=== PATIENT | male | born 1980 | race Caucasian/White ===

== ENCOUNTER 2023-09-08 17:30 | Inpatient (IN) | payer OTHER ==
[2023-09-08 17:57] VITALS: BMI 27.1
[2023-09-08] MEDS ORDERED: IBUPROFEN 400 MG TABLET (FP) PO PRN (18:11)
[2023-09-08] MEDS ORDERED: LOPERAMIDE HCL 2 MG CAPSULE PO PRN (18:11)
[2023-09-08] MEDS ORDERED: POLYETHYLENE GLYCOL (HEALTHYLAX) 3350 17 GM PACKET PO PRN (18:11)
[2023-09-08] MEDS ORDERED: guaiFENesin 600 MG TABLET.ER (FP) PO PRN (18:11)
[2023-09-08] MEDS ORDERED: MAG HYDROX/AL HYDROX/SIMETH 30 ML UNIT-DOSE CUP PO PRN (18:11)
[2023-09-08] MEDS ORDERED: BENZOCAINE/MENTHOL (CHLORASEPTIC ) LOZENGE MM PRN (18:11)
[2023-09-08] MEDS ORDERED: BENZONATATE 200 MG CAPSULE PO PRN (18:11)
[2023-09-08] MEDS ORDERED: ACETAMINOPHEN 325 MG TABLET (FP) PO PRN (18:11)
[2023-09-08] MEDS ORDERED: hydrOXYzine PAMOATE 25 MG CAPSULE (FP) PO PRN (18:11)
[2023-09-08] MEDS ORDERED: DOCUSATE SODIUM 100 MG CAPSULE (FP) PO PRN (18:11)
[2023-09-08] MEDS ORDERED: MAGNESIUM HYDROX 2400MG/30ML ORAL SUSPENSION 30 ML CUP PO PRN (18:11)
[2023-09-08] MEDS: THIAMINE 100 MG TABLET PO SCH (21:12)
[2023-09-08] MEDS: MELATONIN 5 MG TABLETS PO SCH (21:12)
[2023-09-08] MEDS ORDERED: TUBERCULIN PPD 5 TU/0.1ML VIAL ID ONE ×3 (22:32→23:02)
[2023-09-08] MEDS: TUBERCULIN PPD 5 TU/0.1ML SYRINGE (IN PATIENT USE ONLY) ID ONE (22:59)
[2023-09-08] MEDS: ATORVASTATIN CA 10 MG TABLET (FP) PO SCH (23:54)
[2023-09-08] MEDS: ROSUVASTATIN CA 20 MG TABLET PO SCH (23:54)
[2023-09-08] MEDS: DOXYCYCLINE HYCLATE 100 MG CAPSULE PO SCH (23:54)
[2023-09-09] MEDS: GABAPENTIN 300 MG CAPSULE PO SCH (09:50)
[2023-09-09] MEDS: BICTEGRAV/EMTRICIT/TENOFOV (BIKTARVY) 50-200-25 MG TABLET PO SCH (09:50)
[2023-09-09] MEDS: PRENATAL VITAMINS W/ FOLIC ACID TABLET (FP) PO SCH (09:50)
[2023-09-09] MEDS: DESVENLAFAXINE 50 MG PO SCH (12:34)
[2023-09-09 12:37] LABS: HEMATOCRIT 37.2 % (35.4-49); HEMOGLOBIN 12.9 GM/dL (11.7-16.9); MCH 33.1 pg (25.7-33.7); MCHC 34.7 g/dl (32.0-35.9); MEAN CELL VOLUME 95.5 fl (80-96); MEAN PLT VOLUME 7.1 fl (7.5-11.1); PLATELET COUNT 131 10^3/uL (134-434); WHITE BLOOD COUNT 3.3 K/mm3 (4.0-10.0)
[2023-09-09 12:40] LABS: POTASSIUM 4.1 mmol/L (3.5-5.1)
[2023-09-09 12:42] LABS: CALCIUM 9.3 mg/dL (8.5-10.1)
[2023-09-09 12:43] LABS: ALBUMIN 3.6 g/dl (3.4-5.0); BLOOD UREA NITROGEN 16.6 mg/dL (7-18)
[2023-09-09 12:46] LABS: CREATININE 1.3 mg/dL (0.55-1.3)
[2023-09-09 12:47] LABS: BILIRUBIN,TOTAL 0.7 mg/dL (0.2-1)
[2023-09-09 15:13] LABS: PH,URINE 6.5 (5.0-8.0); URINE APPEARANCE CLEAR; URINE BILIRUBIN NEGATIVE (NEGATIVE); URINE COLOR DK YELLOW; URINE GLUCOSE (UA) NEGATIVE (NEGATIVE); URINE KETONE NEGATIVE (NEGATIVE); URINE LEUK ESTERASE NEGATIVE (NEGATIVE); URINE NITRITE NEGATIVE (NEGATIVE); URINE PROTEIN TRACE (NEGATIVE)
[2023-09-09] MEDS: DOXYCYCLINE HYCLATE 100 MG TABLET PO SCH (21:01)
[2023-09-10] MEDS: EMTRICITABINE PO SCH (07:13)
[2023-09-10] MEDS: BICTEGRAVIR PO SCH (07:13)
[2023-09-10] MEDS: TENOFOVIR ALAFENAMIDE PO SCH (07:13)
[2023-09-10] MEDS: [UNRECOGNIZED DRUG - OTHER] PO SCH (07:13)
[2023-09-17] MEDS: LIDOCAINE 5% TOPICAL PATCH TP SCH (15:08)
[2023-09-17] MEDS: LIDOCAINE PATCH REMOVAL MC SCH (21:10)
[2023-09-21] MEDS: IBUPROFEN 600 MG TABLET (FP) PO PRN (12:42)
[2023-09-23 06:34] VITALS: PULSE 85; RESP 20; TEMP 97.2
[2023-09-23 08:01] VITALS: BP 132/93
== END 2023-09-23 10:44 | disposition home or self-care (01) | DRG 772 ==
LOC: YASAS 17:30 → Y3E 18:36
PROVIDERS: ADMIT Allergy & Immunology; ATTEND Psychiatry & Neurology Pain Medicine
PROC: HZ42ZZZ Group Counseling for Substance Abuse Treatment, Cognitive-Behavioral (ICD-10-PCS; principal; 2023-09-08)
DX: F10.20 Alcohol dependence, uncomplicated (principal); F10.282 Alcohol dependence with alcohol-induced sleep disorder; F10.280 Alcohol dependence with alcohol-induced anxiety disorder; I10 Essential (primary) hypertension; Z21 Asymptomatic human immunodeficiency virus [HIV] infection status; E78.5 Hyperlipidemia, unspecified; G89.29 Other chronic pain; Z85.47 Personal history of malignant neoplasm of testis; C91.51 Adult T-cell lymphoma/leukemia (HTLV-1-associated), in remission; R26.2 Difficulty in walking, not elsewhere classified; Z99.89 Dependence on other enabling machines and devices; Z56.0 Unemployment, unspecified
CPT/HCPCS: 36415; 80053; 80305; 80307; 81003; 85027; 86780; 86803; 87811; 93005; 93010

== ENCOUNTER 2023-12-15 15:26 | Inpatient (IN) | payer OTHER ==
[2023-12-15 15:55] VITALS: BMI 30.7
[2023-12-15] MEDS ORDERED: DICYCLOMINE HCL 10 MG CAPSULE PO PRN (16:27)
[2023-12-15] MEDS ORDERED: ONDANSETRON *ODT* 4 MG TABLET SL PRN (16:27)
[2023-12-15] MEDS ORDERED: ACETAMINOPHEN 325 MG TABLET (FP) PO PRN (16:27)
[2023-12-15] MEDS ORDERED: IBUPROFEN 400 MG TABLET (FP) PO PRN (16:27)
[2023-12-15] MEDS ORDERED: IBUPROFEN 600 MG TABLET (FP) PO PRN (16:27)
[2023-12-15] MEDS ORDERED: MAG HYDROX/AL HYDROX/SIMETH 30 ML UNIT-DOSE CUP PO PRN (16:27)
[2023-12-15] MEDS ORDERED: POLYETHYLENE GLYCOL (HEALTHYLAX) 3350 17 GM PACKET PO PRN (16:27)
[2023-12-15] MEDS ORDERED: guaiFENesin 600 MG TABLET.ER (FP) PO PRN (16:27)
[2023-12-15] MEDS ORDERED: MAGNESIUM HYDROX 2400MG/30ML ORAL SUSPENSION 30 ML CUP PO PRN (16:27)
[2023-12-15] MEDS ORDERED: LOPERAMIDE HCL 2 MG CAPSULE PO PRN (16:27)
[2023-12-15] MEDS ORDERED: BENZONATATE 200 MG CAPSULE PO PRN (16:27)
[2023-12-15] MEDS ORDERED: BENZOCAINE/MENTHOL (CHLORASEPTIC ) LOZENGE MM PRN (16:27)
[2023-12-15] MEDS: THIAMINE 100 MG TABLET PO SCH (22:17)
[2023-12-15] MEDS: MELATONIN 5 MG TABLETS PO SCH (22:17)
[2023-12-16] MEDS: BICTEGRAV/EMTRICIT/TENOFOV (BIKTARVY) 50-200-25 MG TABLET PO SCH (08:01)
[2023-12-16] MEDS ORDERED: diazePAM 5 MG TABLET PO PRN (09:33)
[2023-12-16] MEDS: diazePAM 5 MG TABLET PO SCH (10:13)
[2023-12-16] MEDS: LIDOCAINE 4% PATCH TP SCH (10:13)
[2023-12-16] MEDS: PRENATAL VITAMINS W/ FOLIC ACID TABLET (FP) PO SCH (10:13)
[2023-12-16] MEDS: BISMUTH SUBSALICYLATE 524 MG/30 ML PO PRN (10:14)
[2023-12-16 11:34] LABS: POTASSIUM 3.9 mmol/L (3.5-5.1)
[2023-12-16 11:35] LABS: HEMATOCRIT 35.5 % (35.4-49); HEMOGLOBIN 12.6 GM/dL (11.7-16.9); MCH 33.4 pg (25.7-33.7); MCHC 35.5 g/dl (32.0-35.9); MEAN PLT VOLUME 6.8 fl (7.5-11.1); PLATELET COUNT 167 10^3/uL (134-434); RBC 3.78 M/mm3 (4.00-5.60); RDW 12.9 % (11.9-15.9)
[2023-12-16 11:36] LABS: CALCIUM 9.2 mg/dL (8.5-10.1)
[2023-12-16 11:37] LABS: ALBUMIN 3.8 g/dl (3.4-5.0)
[2023-12-16 11:39] LABS: BLOOD UREA NITROGEN 10.8 mg/dL (7-18)
[2023-12-16 11:40] LABS: CREATININE 1.1 mg/dL (0.55-1.3)
[2023-12-16 11:43] LABS: BILIRUBIN,TOTAL 0.6 mg/dL (0.2-1); TOT PROT 7.2 g/dl (6.4-8.2)
[2023-12-16] MEDS: ACAMPROSATE CALCIUM 333 MG TABLET.DR PO SCH (13:10)
[2023-12-16] MEDS: LIDOCAINE PATCH REMOVAL MC SCH (22:05)
[2023-12-16] MEDS: METHOCARBAMOL 500 MG TABLET PO PRN (22:05)
[2023-12-16] MEDS: ROSUVASTATIN CA 20 MG TABLET PO SCH (22:05)
[2023-12-17] MEDS: hydrOXYzine PAMOATE 25 MG CAPSULE (FP) PO PRN (17:10)
[2023-12-18] MEDS: diazePAM 5 MG TABLET PO SCH (05:33)
[2023-12-18] MEDS ORDERED: CYCLOBENZAPRINE HCL 10 MG TABLET (FP) PO PRN (12:46)
[2023-12-18] MEDS: GABAPENTIN 300 MG CAPSULE PO SCH (13:39)
[2023-12-19] MEDS: diazePAM 5 MG TABLET PO SCH (05:31)
[2023-12-20] MEDS: diazePAM 5 MG TABLET PO ONE (05:18)
[2023-12-20 09:21] VITALS: RESP 16; TEMP 97.7
[2023-12-20 09:23] VITALS: BP 130/100; PULSE 70
[2023-12-20 11:33] LABS: HEMOGLOBIN 13.4 GM/dL (11.7-16.9); MCH 32.7 pg (25.7-33.7); MCHC 34.4 g/dl (32.0-35.9); MEAN CELL VOLUME 94.9 fl (80-96); MEAN PLT VOLUME 6.9 fl (7.5-11.1); PLATELET COUNT 156 10^3/uL (134-434); RBC 4.11 M/mm3 (4.00-5.60); RDW 12.6 % (11.9-15.9); WHITE BLOOD COUNT 3.3 K/mm3 (4.0-10.0)
[2023-12-20 11:37] LABS: POTASSIUM 4.7 mmol/L (3.5-5.1)
[2023-12-20 11:46] LABS: CALCIUM 9.9 mg/dL (8.5-10.1)
[2023-12-20 11:47] LABS: ALBUMIN 3.7 g/dl (3.4-5.0); BLOOD UREA NITROGEN 18.7 mg/dL (7-18)
[2023-12-20 11:51] LABS: BILIRUBIN,TOTAL 0.4 mg/dL (0.2-1); TOT PROT 7.4 g/dl (6.4-8.2)
[2023-12-20 12:46] LABS: ANISOCYTOSIS 0; MACROCYTOSIS 0
== END 2023-12-20 13:01 | disposition other institution (70) | DRG 775 ==
LOC: YASAS 15:26 → Y3N 17:00
PROVIDERS: ADMIT Neuromusculoskeletal Medicine & OMM; ATTEND Surgery
PROC: HZ2ZZZZ Detoxification Services for Substance Abuse Treatment (ICD-10-PCS; principal; 2023-12-15)
DX: F10.230 Alcohol dependence with withdrawal, uncomplicated (principal); F10.280 Alcohol dependence with alcohol-induced anxiety disorder; F10.282 Alcohol dependence with alcohol-induced sleep disorder; F41.9 Anxiety disorder, unspecified; Z21 Asymptomatic human immunodeficiency virus [HIV] infection status; E78.5 Hyperlipidemia, unspecified; I10 Essential (primary) hypertension; M41.9 Scoliosis, unspecified; M54.50 Low back pain, unspecified; G89.29 Other chronic pain; Z85.47 Personal history of malignant neoplasm of testis; Z85.72 Personal history of non-Hodgkin lymphomas
CPT/HCPCS: 36415; 80053; 80305; 85025; 85027; 87811

== ENCOUNTER 2023-12-20 13:10 | Inpatient (IN) | payer OTHER ==
[2023-12-20] MEDS ORDERED: MAG HYDROX/AL HYDROX/SIMETH 30 ML UNIT-DOSE CUP PO PRN (15:37)
[2023-12-20] MEDS ORDERED: METHOCARBAMOL 500 MG TABLET PO PRN (15:37)
[2023-12-20] MEDS ORDERED: POLYETHYLENE GLYCOL (HEALTHYLAX) 3350 17 GM PACKET PO PRN (15:37)
[2023-12-20] MEDS ORDERED: BENZONATATE 200 MG CAPSULE PO PRN (15:37)
[2023-12-20] MEDS ORDERED: IBUPROFEN 600 MG TABLET (FP) PO PRN (15:37)
[2023-12-20] MEDS ORDERED: IBUPROFEN 400 MG TABLET (FP) PO PRN (15:37)
[2023-12-20] MEDS ORDERED: ACETAMINOPHEN 325 MG TABLET (FP) PO PRN (15:37)
[2023-12-20] MEDS ORDERED: NALOXONE (NARCAN) HCL 4 MG/0.1 ML SPRAY NS PRN (15:37)
[2023-12-20] MEDS ORDERED: LOPERAMIDE HCL 2 MG CAPSULE PO PRN (15:37)
[2023-12-20] MEDS ORDERED: MAGNESIUM HYDROX 2400MG/30ML ORAL SUSPENSION 30 ML CUP PO PRN (15:37)
[2023-12-20] MEDS ORDERED: hydrOXYzine PAMOATE 25 MG CAPSULE (FP) PO PRN (15:37)
[2023-12-20] MEDS ORDERED: BENZOCAINE/MENTHOL (CHLORASEPTIC ) LOZENGE MM PRN (15:37)
[2023-12-20] MEDS ORDERED: guaiFENesin 600 MG TABLET.ER (FP) PO PRN (15:37)
[2023-12-20] MEDS ORDERED: NALOXONE HCL 0.4 MG/ML VIAL IVPUSH PRN (15:37)
[2023-12-20] MEDS: THIAMINE 100 MG TABLET PO SCH (21:27)
[2023-12-20] MEDS: ROSUVASTATIN CA 20 MG TABLET PO SCH (21:27)
[2023-12-20] MEDS: MELATONIN 5 MG TABLETS PO SCH (21:27)
[2023-12-20] MEDS: ACAMPROSATE CALCIUM 333 MG TABLET.DR PO SCH (21:27)
[2023-12-20] MEDS: LIDOCAINE PATCH REMOVAL MC SCH (21:27)
[2023-12-20] MEDS: GABAPENTIN 300 MG CAPSULE PO SCH (21:27)
[2023-12-21] MEDS: BICTEGRAV/EMTRICIT/TENOFOV (BIKTARVY) 50-200-25 MG TABLET PO SCH (07:03)
[2023-12-21] MEDS: PRENATAL VITAMINS W/ FOLIC ACID TABLET (FP) PO SCH (09:44)
[2023-12-21] MEDS: LIDOCAINE 4% PATCH TP SCH (09:45)
[2023-12-24] MEDS ORDERED: METHYL SALICYLATE/MENTHOL 30 GM TUBE TP PRN (09:37)
[2023-12-24] MEDS: GABAPENTIN 300 MG CAPSULE PO SCH (13:01)
[2023-12-24] MEDS ORDERED: hydrOXYzine PAMOATE 25 MG CAPSULE (FP) PO PRN (16:17)
[2023-12-24] MEDS: busPIRone HCL 5 MG TABLET PO SCH (22:15)
[2023-12-25 16:16] LABS: INR 0.96 (0.83-1.09)
[2023-12-27] MEDS ORDERED: ROSUVASTATIN CA 10 MG TABLET ONE (20:59)
[2023-12-28] MEDS ORDERED: ROSUVASTATIN CA 10 MG TABLET ONE (20:09)
[2023-12-29] MEDS ORDERED: ROSUVASTATIN CA 10 MG TABLET ONE (20:36)
[2023-12-30] MEDS: P-EPHED 60MG/TRIPROLIDI 2.5MG TABLET PO PRN (21:54)
[2024-01-01] MEDS: NALOXONE (NYS OPIOID OVERDOSE PROGRAM) 4 MG/0.1 ML SPRAY NS SCH (16:07)
[2024-01-02 06:34] VITALS: RESP 16; TEMP 97.8
[2024-01-02] MEDS ORDERED: NALOXONE (NYS OPIOID OVERDOSE PROGRAM) 4 MG/0.1 ML SPRAY NS PRN (08:50)
[2024-01-02 08:54] VITALS: BP 131/89; PULSE 89
[2024-01-02] MEDS: NALOXONE (NYS OPIOID OVERDOSE PROGRAM) 4 MG/0.1 ML SPRAY NS PRN (08:55)
== END 2024-01-02 10:45 | disposition home or self-care (01) | DRG 772 ==
LOC: YASAS 13:10 → Y3W 13:13 → Y3NR 12-26 16:13 → Y3E 12-27 11:06
PROVIDERS: ADMIT Psychiatry & Neurology Pain Medicine; ATTEND Psychiatry & Neurology Pain Medicine
PROC: HZ42ZZZ Group Counseling for Substance Abuse Treatment, Cognitive-Behavioral (ICD-10-PCS; principal; 2023-12-20)
DX: F10.20 Alcohol dependence, uncomplicated (principal); F10.280 Alcohol dependence with alcohol-induced anxiety disorder; F10.282 Alcohol dependence with alcohol-induced sleep disorder; F41.9 Anxiety disorder, unspecified; F32.A Depression, unspecified; Z21 Asymptomatic human immunodeficiency virus [HIV] infection status; E78.5 Hyperlipidemia, unspecified; I10 Essential (primary) hypertension; G62.9 Polyneuropathy, unspecified; M41.9 Scoliosis, unspecified; M54.50 Low back pain, unspecified; G89.29 Other chronic pain; Z85.47 Personal history of malignant neoplasm of testis; Z85.72 Personal history of non-Hodgkin lymphomas
CPT/HCPCS: 36415; 80305; 82140; 82652; 83735; 85610; 86803; 87811

== ENCOUNTER 2024-01-13 12:47 | Inpatient (IN) | payer OTHER ==
[2024-01-13] MEDS ORDERED: LOPERAMIDE HCL 2 MG CAPSULE PO PRN (18:16)
[2024-01-13] MEDS ORDERED: NALOXONE HCL 0.4 MG/ML VIAL IVPUSH PRN (18:16)
[2024-01-13] MEDS ORDERED: NALOXONE (NARCAN) HCL 4 MG/0.1 ML SPRAY NS PRN (18:16)
[2024-01-13] MEDS ORDERED: MAGNESIUM HYDROX 2400MG/30ML ORAL SUSPENSION 30 ML CUP PO PRN (18:16)
[2024-01-13] MEDS ORDERED: POLYETHYLENE GLYCOL (HEALTHYLAX) 3350 17 GM PACKET PO PRN (18:16)
[2024-01-13] MEDS: ACAMPROSATE CALCIUM 333 MG TABLET.DR PO SCH (21:10)
[2024-01-13] MEDS: THIAMINE 100 MG TABLET PO SCH (21:10)
[2024-01-13] MEDS: IBUPROFEN 600 MG TABLET (FP) PO PRN (21:11)
[2024-01-13] MEDS: METHOCARBAMOL 500 MG TABLET PO PRN (21:11)
[2024-01-13] MEDS: MELATONIN 5 MG TABLETS PO SCH (21:11)
[2024-01-13] MEDS: LIDOCAINE PATCH REMOVAL MC SCH (21:58)
[2024-01-13] MEDS: busPIRone HCL 5 MG TABLET PO SCH (21:58)
[2024-01-13] MEDS: GABAPENTIN 300 MG CAPSULE PO SCH (21:58)
[2024-01-13] MEDS: ROSUVASTATIN CA 20 MG TABLET PO SCH (21:58)
[2024-01-14] MEDS: PRENATAL VITAMINS W/ FOLIC ACID TABLET (FP) PO SCH (10:10)
[2024-01-14] MEDS: LIDOCAINE 4% PATCH TP SCH (10:14)
[2024-01-14] MEDS: BICTEGRAV/EMTRICIT/TENOFOV (BIKTARVY) 50-200-25 MG TABLET PO SCH (10:29)
[2024-01-14] MEDS: DISULFIRAM 250 MG TABLET PO SCH (16:35)
[2024-01-15] MEDS: ACETAMINOPHEN 325 MG TABLET (FP) PO PRN (05:50)
[2024-01-15] MEDS: P-EPHED 60MG/TRIPROLIDI 2.5MG TABLET PO ONE (06:08)
[2024-01-15] MEDS: BENZONATATE 200 MG CAPSULE PO PRN (09:39)
[2024-01-15] MEDS: CYCLOBENZAPRINE HCL 10 MG TABLET (FP) PO PRN (21:34)
[2024-01-15] MEDS: guaiFENesin 600 MG TABLET.ER (FP) PO PRN (21:35)
[2024-01-17] MEDS: hydrOXYzine PAMOATE 25 MG CAPSULE (FP) PO PRN (06:14)
[2024-01-17 16:22] LABS: POTASSIUM 3.9 mmol/L (3.5-5.1)
[2024-01-17 16:25] LABS: ALBUMIN 3.1 g/dl (3.4-5.0); BLOOD UREA NITROGEN 15.2 mg/dL (7-18); CALCIUM 9.5 mg/dL (8.5-10.1)
[2024-01-17 16:26] LABS: HEMATOCRIT 35.8 % (35.4-49); MCH 31.9 pg (25.7-33.7); MCHC 33.6 g/dl (32.0-35.9); MEAN PLT VOLUME 7.2 fl (7.5-11.1); PLATELET COUNT 135 10^3/uL (134-434); RBC 3.77 M/mm3 (4.00-5.60); RDW 12.7 % (11.9-15.9); WHITE BLOOD COUNT 4.7 K/mm3 (4.0-10.0)
[2024-01-17 16:27] LABS: CREATININE 1.2 mg/dL (0.55-1.3)
[2024-01-17 16:30] LABS: BILIRUBIN,TOTAL 0.8 mg/dL (0.2-1)
[2024-01-17 17:09] LABS: ANISOCYTOSIS 1+; MACROCYTOSIS 0; OVALOCYTE 1+
[2024-01-18] MEDS: BENZOCAINE/MENTHOL (CHLORASEPTIC ) LOZENGE MM PRN (06:16)
[2024-01-18] MEDS: ALBUTEROL SO4 2.5/IPRATROPIUM 0.5 INH SOL 3 ML VIAL.NEB. NEB ONE (18:32)
[2024-01-19] MEDS: ALBUTEROL SO4 2.5/IPRATROPIUM 0.5 INH SOL 3 ML VIAL.NEB. NEB PRN (10:40)
[2024-01-19] MEDS: SULFAMETHOXAZOLE/TRIMETHOPRIM 800MG/160MG D.S. TABLET PO SCH (21:31)
[2024-01-20] MEDS: guaiFENesin 200 MG/10 ML 10 ML UNIT-DOSE CUPS PO PRN (19:56)
[2024-01-21] MEDS: ALBUTEROL SO4 0.083% IH SOL 2.5 MG/3 ML VIAL.NEB. NEB SCH (10:50)
[2024-01-26] MEDS: MAG HYDROX/AL HYDROX/SIMETH 30 ML UNIT-DOSE CUP PO PRN (17:38)
[2024-02-03] MEDS: IBUPROFEN 400 MG TABLET (FP) PO PRN (09:46)
[2024-02-06] MEDS: busPIRone HCL 10 MG TABLET (FP) PO SCH (14:59)
[2024-02-07 06:42] VITALS: RESP 16
[2024-02-07] MEDS: ESCITALOPRAM OXALATE 10 MG TABLET PO SCH (09:45)
[2024-02-10 06:21] VITALS: BP 124/81; PULSE 66; TEMP 97.5
[2024-02-10] MEDS: NALOXONE (NYS OPIOID OVERDOSE PROGRAM) 4 MG/0.1 ML SPRAY NS SCH (09:40)
== END 2024-02-10 09:45 | disposition home or self-care (01) | DRG 772 ==
LOC: YASAS 12:47 → Y3W 12:49 → Y3NR 01-15 14:11 → Y3W 01-23 12:13
PROVIDERS: ADMIT Psychiatry & Neurology Pain Medicine; ATTEND Psychiatry & Neurology Pain Medicine
PROC: HZ42ZZZ Group Counseling for Substance Abuse Treatment, Cognitive-Behavioral (ICD-10-PCS; principal; 2024-01-13)
DX: F10.20 Alcohol dependence, uncomplicated (principal); F10.280 Alcohol dependence with alcohol-induced anxiety disorder; F10.282 Alcohol dependence with alcohol-induced sleep disorder; Z21 Asymptomatic human immunodeficiency virus [HIV] infection status; E78.5 Hyperlipidemia, unspecified; I10 Essential (primary) hypertension; G62.9 Polyneuropathy, unspecified; L03.115 Cellulitis of right lower limb; B97.4 Respiratory syncytial virus as the cause of diseases classified elsewhere; B33.8 Other specified viral diseases; Z85.47 Personal history of malignant neoplasm of testis; Z85.72 Personal history of non-Hodgkin lymphomas; Z86.59 Personal history of other mental and behavioral disorders; Z79.899 Other long term (current) drug therapy; Z99.3 Dependence on wheelchair
CPT/HCPCS: 0241U-QW; 36415; 71046-TC-FY; 73610-TC-RT-FY; 80053; 82140; 85025; 94640